=== PATIENT | male | born 1995 | race Caucasian/White ===

== ENCOUNTER 2018-05-20 08:45 | Outpatient (RCR) | payer BC | END 2018-06-25 09:11 | disposition home or self-care (01) | LOC: WSOT 08:45 | DX: S62.302D Unspecified fracture of third metacarpal bone, right hand, subsequent encounter for fracture with routine healing (principal); W22.09XD Striking against other stationary object, subsequent encounter; Z96.7 Presence of other bone and tendon implants ==